=== PATIENT | female | born 1935 | race Caucasian/White ===

== ENCOUNTER → 2018-03-04 06:41 | Outpatient (CLI) | payer MEDICARE, SELFPAY ==
--- NOTE | 2018-03-04 08:59 | STRESSREP ---
Stress Test Report Pharmacologic myocardial perfusion stress test. 82-year-old lady with a history of chest pain. Stress protocol: Resting EKG demonstrates sinus bradycardia with a rate of 56 bpm normal intervals and noted right bundle branch block is present resting blood pressure is 100 7212 mmHg. 0.4 mg regadenoson was infused per usual protocol followed by rapid intravenous saline flush injection continuous EKG monitoring was performed. The patient maintained sinus rhythm throughout the recording. The maximum heart rate attained was 77 bpm which was 55% maximum predicted heart rate the maximum workload attained was 1 metabolic equivalent. At rest there were no ST or T-wave changes noted suggest abnormal flow reserve at peak infusion no ST or T-wave changes were noted just abnormal flow reserve. Myocardial perfusion protocol: 10.8 mCi of technetium 99m sestamibi was injected at rest. 0.4 mg of regadenoson was infused per usual protocol peak infusion 36.0 mCi of technetium 99m sestamibi was injected stress images were obtained stress and rest images were reconstructed and compared in the short axis vertical long and horizontal long axis. Gated images were also obtained pre- Perfusion SPECT analysis: Review of the stress images demonstrate normal uptake of tracer noted in all areas of the myocardium. The resting images similarly demonstrate normal uptake of tracer noted in all areas of the myocardium. No areas of reversibility are noted suggest ischemia. Gated SPECT analysis: The gated ejection fraction is noted to be 83%. Conclusion: Normal pharmacologic myocardial perfusion stress test. Preserved ejection fraction.
== END ==
PROVIDERS: Family Provider Internal Medicine; PCP Internal Medicine; Visit Provider Internal Medicine
DX: I25.10 Atherosclerotic heart disease of native coronary artery without angina pectoris (principal); R00.2 Palpitations
CPT/HCPCS: 78452; 93017; A9500; A4216; J2785

== ENCOUNTER → 2018-03-06 08:00 | Outpatient (CLI) | payer MEDICARE, SELFPAY ==
--- NOTE | 2018-03-06 08:09 | RDU_ITS ---
Reason For Study: HYPERTENSION Right Renal Artery Left Renal Artery Right renal artery ostium Left renal artery ostium 243.0/38.2 244.0/84.0 RSV/EDV. PSV/EDV. Right renal artery proximal Left renal artery proximal PSV/EDV 244.0/76.1 PSV/EDV. 200.0/38.2 . Right renal artery mid 228.0/77.6 Left renal artery mid 218.0/44.3 PSV/EDV. PSV/EDV . Right renal artery distal Left renal artery distal 166.0/24.4 197.0/45.2 PSV/EDV. PSV/EDV. Right RAR 3.7. Left RAR 3.6. Right Renal Parenchyma Left Renal Parenchyma Upper Pole Medula 31.0/7.8 PSV/EDV. Left upper pole medulla 25.1/6.4 Right upper pole medulla EDR .25 . PSV/EDV . Right upper pole medulla R.I. .75 . Left upper pole medulla EDR .25 . Upper [place] Cortx 28.3/9.1 PSV/EDV. Left upper pole medulla R.I. .74 . Right upper pole cortex EDR .32 . UP Cortex 30.3/7.0 PSV/EDV. Right upper pole cortex R.I. .68 . Left upper pole cortex EDR .23 . Right lower Pole medulla 36.0/9.1 Left upper pole cortex R.I. .77 . PSV/EDV . Left lower Pole medulla 33.0/7.6 Right lower pole medulla EDR .25 . PSV/EDV . Right lower pole medulla R.I. .75 . Left lower pole medulla EDR .23 . Lower Pole Cortex 34.2/9.1 PSV/EDV. Left lower pole medulla R.I. .77 . Right lower pole cortex EDR .27 . Lower Pole Cortx 23.5/7.0 PSV/EDV. Right lower pole cortex R.I. .73 . Left lower pole cortex EDR .30 . Right Renal Hilar Left lower pole cortex R.I. .70 . Right Hilar avg 51.1/12.3 PSV/EDV. Left Renal Hilar Right hilar acceleration time 66 LT Hilar avg 65.2/9.1 PSV/EDV . m/sec. Left hilar acceleration time 66 Right Renal Dimensions m/sec. Right kidney size 9.0 cm . Left Renal Dimensions Right cortical dimension 1.2 cm . Left kidney size 9.4 cm . Left cortical dimension 1.4 cm . Aorta Proximal abdominal aorta 2.2 x 2.2 cm . Mid Aorta - 3.4 x 3.8 cm. Distal abdominal aorta 2.2 x 2.5 cm . Proximal abdominal aorta peak systolic velocity is 66.6 cm/sec . Distal abdominal aorta peak systolic velocity is 80.3 cm/sec . Interpretation Summary 1. Bilateral renal arteries suggestive >60% stenosis. 2. Resistive index is increased bilaterally. 3. Aortic aneurysm 3.8cm. Ordering Physician: Luh Fish Referring Physician: Luh Fish Performed By: Nurys Hernandez RVT
--- NOTE | 2018-03-06 08:09 | AAVD_ITS ---
Reason For Study: AAA Aorta Measurements Aorta Doppler Measurements Proximal aorta measures2.0 x 1.9cm. in cross- Peak systolic flow velocities within the proximal sectional axis. aorta measure 48.2 cm/sec. Proximal aorta measures1.9cm. in longitudinal Peak systolic flow velocities within the mid axis. aorta measure 58.2 cm/sec. Mid aorta measures3.4 x 3.8cm. in cross-sectionalPeak systolic flow velocities within the distal axis. aorta measure 62.0 cm/sec. Mid aorta measures3.3cm. in longitudinal axis. Distal aorta measures2.8 x 2.9cm. in cross- sectional axis. Distal aorta measures2.9cm. in longitudinal axis. Left Iliac Artery Left iliac artery measures .54 cm. in the longitudinal axis. Left iliac artery measures .61 x .58 cm. in the cross-sectional axis. Peak systolic velocity in the left iliac artery measures 183.0 cm/sec. Right Iliac Artery Right iliac artery measures .63 cm. in the longitudinal axis. Right iliac artery measures .62 x .63 cm. in the cross-sectional axis. Peak systolic velocity in the right iliac artery measures 224.0 cm/sec. Procedure Aorta IVC Iliac vasculature or bypass grafts [id number]. Exam performed in department. Interpretation Summary 1.Aortic aneurysm 3.8cm. Ordering Physician: Luh Fish Referring Physician: Luh Fish Performed By: Nurys Hernandez RVT
== END ==
PROVIDERS: Family Provider Internal Medicine; PCP Internal Medicine; Visit Provider Internal Medicine
DX: I71.4 Abdominal aortic aneurysm, without rupture (principal); I12.9 Hypertensive chronic kidney disease with stage 1 through stage 4 chronic kidney disease, or unspecified chronic kidney disease; I25.10 Atherosclerotic heart disease of native coronary artery without angina pectoris; R00.2 Palpitations
CPT/HCPCS: 93225; 93226; 93975; 93978

== ENCOUNTER → 2018-03-31 12:05 | Outpatient (CLI) | payer MEDICARE, SELFPAY ==
--- NOTE | 2018-03-31 12:05 | DT_ITS ---
This patient was seen during an EMR downtime March 30, 2018 - April 06, 2018. This patient may have a combination of paper and electronic documentation or all paper documentation. All documentation is viewable within the e-chart portion of [facility] for each patient visit.
--- NOTE | 2018-03-31 12:20 | BD_ITS ---
STUDY: DUAL ENERGY X-RAY ABSORPTIOMETRY / DXA REASON FOR EXAM: Female, 82 years old. Osteoporosis screening. TECHNIQUE: Bone Mineral Density (BMD) measurements of lumbar spine and bilateral hips were obtained. COMPARISON: March 26, 2016, March 24, 2014 FINDINGS: Lumbar Spine (L1-L4): g/cm2 (0.959) / T-score (-1.7) / Z-score (0.1) The bone mineral density of the lumbar spine is osteopenic with a moderate fracture risk. The BMD has decreased 4.2% since the most recent comparison study of 2015. Left Femur Total: g/cm2 (0.732) / T-score (-2.2) / Z-score (-0.2) Left Femoral Neck: g/cm2 (0.690) / T-score (-2.5) / Z-score (3) The bone mineral density of the left femur is osteopenic with a moderate fracture risk. The BMD has decreased 0.5% since the most recent comparison study of 2015. Right Femur Total: g/cm2 (0.716) / T-score (-2.3) / Z-score (-0.3) Right Femoral Neck: g/cm2 (0.712) / T-score (-2.3) / Z-score (-0.2) The bone mineral density of the right femur is osteopenic with a moderate fracture risk. The BMD has decreased 0.8% since the most recent comparison study of 2015. BD/Dexa Bone Density Study IMPRESSION: The patient is considered osteopenic as outlined below according to World Jose Organization (WHO) criteria with a moderate fracture risk. There has been a slight decrease of bone density at all measured sites since the previous examination. Reference Information: The T-score is the number of standard deviations above or below the standard which is normal for young adults at their peak bone mineral density. The World Health Organization (WHO) interprets the T-scores as follows: Above -1 Normal bone density Between -1 and -2.5 Osteopenia Equal to / or below -2.5 Osteoporosis As a practical clinical guideline, osteopenia may be graded as follows: Mild -1 through -1.5 Moderate -1.6 through -2.0 Severe -2.1 through -2.4 The Z-score is the number of standard deviations above or below age-matched controls. A Z-score of less than -1.5 would be considered abnormal. References: 1. NIH Osteoporosis and Related Bone Diseases http://www.osteo.org 2. International Society for Clinical Densitometry http://www.iscd.org 3. National Osteoporosis Foundation http://www.nof.org Electronically Signed: Jason Liu MD at 11:00 EDT , Service support ,
--- NOTE | 2018-03-31 13:05 | BI_ITS ---
MAMMOGRAPHY - BILATERAL SCREENING REASON FOR EXAM: Female, 82 years old. Routine annual screening examination. PERTINENT HISTORY: Mother with breast cancer. Grandmother with breast cancer. Bilateral breast prostheses. TECHNIQUE: Digital bilateral breast mirlande (3D mammographic acquisition) in the CC and MLO projections. 2-D mediolateral oblique (MLO) and craniocaudad (CC) views of both breasts were obtained. CAD: Full Field Digital Mammography with Computer Added Detection was performed. COMPARISON: No comparison mammograms available at this time. If any prior films become available, an addendum to this report can be generated. FINDINGS: Breast Composition: There are scattered areas of fibroglandular density. There are no dominant masses or suspicious calcifications. Bilateral breast prostheses are seen. No other significant abnormalities are identified. BI/SCREENING MAMM (CAD), BILAT IMPRESSION: Negative screening mammogram. Yearly followup mammogram recommended. (A) ASSESSMENT CATEGORY: BIRADS Category 2: Benign. A letter regarding these results will be sent to the patient by the facility within 30 days. Approximately 10% of breast cancers are not detected by mammography. A normal mammogram should not delay biopsy of a clinically suspicious abnormality. [id number] Electronically Signed: Charlie Avitia MD at 12:53 EDT Tel [phone], Service support ,
== END ==
PROVIDERS: Family Provider Internal Medicine; PCP Internal Medicine; Visit Provider Internal Medicine
DX: Z78.0 Asymptomatic menopausal state (principal); Z12.31 Encounter for screening mammogram for malignant neoplasm of breast; I12.9 Hypertensive chronic kidney disease with stage 1 through stage 4 chronic kidney disease, or unspecified chronic kidney disease
CPT/HCPCS: 77067; 77080

== ENCOUNTER → 2018-07-29 12:58 | Outpatient (CLI) | payer MEDICARE, SELFPAY ==
--- NOTE | 2018-07-29 13:01 | US_ITS ---
STUDY: RENAL ULTRASOUND - COMPLETE REASON FOR EXAM: Female, 82 years old. Hypertension. Incomplete emptying. TECHNIQUE: Ultrasound evaluation of the kidneys was performed with real-time and static acevedo-scale imaging. COMPARISON: CT abdomen and pelvis 07/05/2017. FINDINGS: RIGHT KIDNEY: Normal location of the right kidney, which is normal in size. The right kidney measures 9.1 x 3.7 x 3.3 cm. There is a normal cortex of the right kidney. The renal cortex measures 1.0 cm. Superior pole simple cyst measuring 1.1 x 1.0 x 0.9 cm .There are no right renal calculi. There is no right hydronephrosis. DISTAL RIGHT URETER: There is non-visualization of the distal right ureter. There is no demonstrated right ureterovesical junction calculus. There is a visualized right ureteral jet. LEFT KIDNEY: Normal location of the left kidney, which is normal in size. The left kidney measures 9.1 x 4.4 x 4.9 cm. There is a normal cortex of the left kidney. The renal cortex measures 1.4 cm. There is no left renal mass or cyst. 2 inferior pole nonobstructing renal calculi measuring 2 mm and 3 mm. There is no left hydronephrosis. DISTAL LEFT URETER: There is non-visualization of the distal left ureter. There is no demonstrated left ureterovesical junction calculus. There is a visualized left ureteral jet. Distal abdominal aortic aneurysm measuring 3.6 x 4.0 cm in the AP and transverse dimensions respectively. I.V.C.: The IVC is patent. BLADDER: The distended urinary bladder has a volume of 133 ml. The empty urinary bladder has a volume of 18 ml. There is a normal wall thickness of the distended urinary bladder. There is no demonstrated mass within the urinary bladder. There are no demonstrated bladder calculi. US/Kidney and Bladder IMPRESSION: No hydronephrosis. Stable superior pole right renal cyst. Small nonobstructing left renal calculi. No significant post void bladder residual. Postvoid bladder residual is 18 mm. Electronically Signed: Thierno Jacome MD at 5:12 EDT , Service support ,
== END ==
PROVIDERS: Family Provider Internal Medicine; PCP Internal Medicine; Referring Provider Internal Medicine Nephrology; Visit Provider Internal Medicine Nephrology
DX: I12.9 Hypertensive chronic kidney disease with stage 1 through stage 4 chronic kidney disease, or unspecified chronic kidney disease (principal)
CPT/HCPCS: 76770